=== PATIENT | male | born 1960 | race African-American/Black ===

== ENCOUNTER 2017-08-29 23:15 | Emergency (ER) | payer MEDICAID, OTHER ==
[~2017-08-29] VITALS: Ht 180.3 cm; Wt 106.6 kg
[~2017-08-29 23:15] MED LIST: BACTRIM-DS1 EA ORAL; CEPHALEXIN500 MG ORAL; CEPHALEXIN500 MG PO; HM DOUBLE ANT28.4 G1 TP; HYDROCODON-ACE1 EA15 ORAL; INDOCIN25 MG ORAL; KEFLEX500 MG ORAL; LISINOPRIL20 MG ORAL; LORAZEPAM1 MG; NORCO 10/3251 EA ORAL; NORCO 5-325 TA1 EACH ORAL; NORCO 5-325 TA1 EACH PO; PHENERGAN25 M1 ORAL; UNABLE TO RECALL
[2017-08-29 23:41] VITALS: BP 178/97
[2017-08-29] MEDS ORDERED: Aspirin Baby 81mg ORAL ONE (23:45)
[2017-08-29] MEDS ORDERED: Aspirin Baby 81mg ONE (23:53)
[2017-08-29 23:58] LABS: BASOPHILS % (AUTO) 1.3 % (0.0-2.0); EOSINOPHILS % (AUTO) 1.3 % (0.0-3.0); HEMATOCRIT 47.4 % (42.0-52.0); HEMOGLOBIN 17.3 G/DL (14.2-18.0); LYMPHOCYTES % (AUTO) 19.2 % (20.0-45.0); MEAN CORPUSCULAR VOLUME 90 FL (80-99); MONOCYTES % (AUTO) 6.8 % (1.0-10.0); NEUTROPHILS % (AUTO) 71.5 % (45.0-75.0); PLATELET COUNT 236 K/UL (150-450); RED BLOOD COUNT 5.25 M/UL (4.70-6.10); RED CELL DISTRIBUTION WIDTH 11.3 % (11.6-14.8); WHITE BLOOD COUNT 9.1 K/UL (4.8-10.8)
[2017-08-29 23:59] LABS: ANION GAP 10 mmol/L (5-15); BLOOD UREA NITROGEN 14 mg/dL (7-18); CALCIUM 9.5 MG/DL (8.5-10.1); CARBON DIOXIDE 24 MMOL/L (21-32); CHLORIDE 107 MMOL/L (98-107); CREATININE 1.3 MG/DL (0.55-1.30); POTASSIUM 3.3 MMOL/L (3.5-5.1); SODIUM 141 MMOL/L (136-145)
[2017-08-30 00:12] LABS: ALANINE AMINOTRANSFERASE 23 U/L (12-78); ALBUMIN 3.6 G/DL (3.4-5.0); ALBUMIN/GLOBULIN RATIO 0.9 (1.0-2.7); ALKALINE PHOSPHATASE 75 U/L (46-116); ASPARTATE AMINO TRANSFERASE 12 U/L (15-37); BILIRUBIN,TOTAL 0.3 MG/DL (0.2-1.0); CREATINE KINASE 161 U/L (26-308)
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
[2017-08-30 01:02] VITALS: BP 150/77
[2017-08-30 01:24] LABS: APPEARANCE,URINE CLEAR; BILIRUBIN, URINE NEGATIVE (NEGATIVE); GLUCOSE, URINE (UA) NEGATIVE (NEGATIVE); KETONES,URINE NEGATIVE (NEGATIVE); LEUKOCYTE ESTERASE ,URINE NEGATIVE (NEGATIVE); NITRITE,URINE NEGATIVE (NEGATIVE); PH,URINE 6 (4.5-8.0); PROTEIN,URINE 2+ (NEGATIVE); UROBILINOGEN,URINE 1 MG/DL (0.0-1.0)
[2017-08-30 01:25] LABS: COLOR,URINE YELLOW
[2017-08-30] MEDS ORDERED: LOSARTAN POTASS50 MG ORAL (02:08)
[2017-08-30 02:12] VITALS: BP 152/76
[2017-08-30 02:14] VITALS: BP 152/76
--- NOTE | 2017-08-30 09:45 | Diagnostic Imaging Report ---
Indication: Chest pain Comparison: 11/08/2014 A single view chest radiograph was obtained. Findings: Cardiomediastinal appearance is within normal limits for age. Pacemaker noted on the left. Pulmonary vascularity is appropriate. The diaphragmatic contour is smooth and costophrenic angles are sharp. No pleural effusions are identified. The bones are unremarkable. Impression: No acute findings
== END 2017-08-30 02:20 | disposition home or self-care (01) ==
LOC: EMR 23:44
DX: R07.9 Chest pain, unspecified (principal); R06.00 Dyspnea, unspecified; I10 Essential (primary) hypertension; E11.9 Type 2 diabetes mellitus without complications; R80.9 Proteinuria, unspecified; Z95.0 Presence of cardiac pacemaker
CPT/HCPCS: 36415; 71045; 80053; 80307; 81003; 82550; 82553; 83880; 84484; 85025; 93005; 96374; 99284; J0360